=== PATIENT | female | born 1935 | race Caucasian/White ===

== ENCOUNTER → 2023-09-27 09:37 | Outpatient (REF) | payer MEDICARE, OTHER, SELFPAY ==
[2023-09-27 10:49] LABS: NT-proBNP 2370 pg/ml
[2023-09-27 10:56] LABS: Albumin 4.6 g/dl (3.5-5.0); Blood Urea Nitrogen 33 mg/dl (7-17); Calcium 9.6 mg/dl (8.4-10.2); Carbon Dioxide 28 mmol/L (22-30); Chloride 101 mmol/L (98-107); Glucose 108 mg/dl (70-99); Phosphorus 6.6 mg/dl (2.5-4.5); Sodium 139 mmol/L (135-145); eGFR 31.21
== END ==
LOC: OLABWIL 09:37
PROVIDERS: ATTENDING PHYSICIAN Internal Medicine Cardiovascular Disease
DX: I50.9 Heart failure, unspecified (principal); N18.32 Chronic kidney disease, stage 3b
CPT/HCPCS: 36415; 80069; 83880

== ENCOUNTER → 2023-10-23 10:58 | Outpatient (REF) | payer MEDICARE, OTHER, SELFPAY ==
[2023-10-23 11:20] LABS: Blood Urea Nitrogen 34 mg/dl (7-17); Calcium 9.8 mg/dl (8.4-10.2); Carbon Dioxide 28 mmol/L (22-30); Chloride 97 mmol/L (98-107); Glucose 112 mg/dl (70-99); Potassium 5.5 mmol/L (3.5-5.1); Sodium 137 mmol/L (135-145); eGFR 31.21
== END ==
LOC: OLABWIL 10:58
PROVIDERS: ATTENDING PHYSICIAN Internal Medicine Cardiovascular Disease
DX: N18.32 Chronic kidney disease, stage 3b (principal)
CPT/HCPCS: 36415; 80048

== ENCOUNTER → 2023-11-16 10:27 | Outpatient (REF) | payer MEDICARE, OTHER, SELFPAY | LOC: RAD 10:27 | PROVIDERS: ATTENDING PHYSICIAN Nurse Practitioner Adult Health; FAMILY PHYSICIAN Nurse Practitioner Family | DX: N95.0 Postmenopausal bleeding (principal) | CPT/HCPCS: 76830; 76856 ==

== ENCOUNTER → 2023-12-11 10:21 | Outpatient (REF) | payer MEDICARE, OTHER, SELFPAY ==
[2023-12-11 11:09] LABS: Blood Urea Nitrogen 32 mg/dl (7-17); Calcium 9.6 mg/dl (8.4-10.2); Carbon Dioxide 28 mmol/L (22-30); Chloride 101 mmol/L (98-107); Glucose 104 mg/dl (70-99); Potassium 4.4 mmol/L (3.5-5.1); Sodium 137 mmol/L (135-145); eGFR 33.73
== END ==
LOC: OLABWIL 10:21
PROVIDERS: ATTENDING PHYSICIAN Internal Medicine Cardiovascular Disease
DX: N18.32 Chronic kidney disease, stage 3b (principal); E87.5 Hyperkalemia
CPT/HCPCS: 36415; 80048

== ENCOUNTER → 2024-02-05 15:23 | Outpatient (REF) | payer MEDICARE, OTHER, SELFPAY ==
[2024-02-05 16:15] LABS: ALT (SGPT) 10 U/L (0-35); AST (SGOT) 27 U/L (14-36); Albumin 4.6 g/dl (3.5-5.0); Alkaline Phosphatase 61 U/L (38-126); Blood Urea Nitrogen 32 mg/dl (7-17); Calcium 9.5 mg/dl (8.4-10.2); Carbon Dioxide 27 mmol/L (22-30); Chloride 99 mmol/L (98-107); Glucose 92 mg/dl (70-99); HDL Cholesterol 96 mg/dl; LDL Cholesterol, Calculated 55 mg/dl; Potassium 4.8 mmol/L (3.5-5.1); Sodium 137 mmol/L (135-145); Total Bilirubin 0.6 mg/dl (0.2-1.3); Total Cholesterol 172 mg/dl (50-199); Total Protein 7.7 g/dl (6.3-8.2); Triglyceride 107 mg/dl (10-149); Very Low Density Lipoprotein 21 mg/dl (0-30); eGFR 40.05
[2024-02-05 16:16] LABS: % Basophils 1.2 % (0-2); % Eosinophils 2.8 % (0-6); % Immature Granulocytes 0.3 % (0-0.5); % Lymphocytes 34.4 % (20.5-51.1); % Neutrophils 51.3 % (42.2-75.2); Absolute Basophils 0.1 10^3/uL (0-0.2); Absolute Eosinophils 0.2 10^3/uL (0-0.7); Absolute Monocytes 0.9 10^3/uL (0.1-0.6); Absolute Neutrophils 4.4 10^3/uL (1.4-6.5); Hematocrit 37.7 % (37.0-47.0); Hemoglobin 11.8 g/dL (12.0-16.0); Mean Corp Hgb Conc. 31.3 g/dL (33.0-37.0); Mean Corpuscular Hgb 31.4 pg (27.0-31.0); Mean Corpuscular Volume 100.3 fL (81.0-99.0); Mean Platelet Volume 11.3 fL (7.4-10.4); Nucleated Red Blood Cells % 0 %; Platelet Count 281 10^3/uL (130-400); Red Blood Cell Count 3.76 10^6/uL (4.20-5.40); Red Cell Dist. Width 13.3 % (11.5-14.5); White Blood Cell Count 8.6 10^3/uL (4.8-10.8)
[2024-02-05 17:00] LABS: TSH Reflex To Free T4 3.65 uIU/ml (0.47-4.68)
== END ==
LOC: OLABWIL 15:23
PROVIDERS: ATTENDING PHYSICIAN Nurse Practitioner Family
DX: I50.9 Heart failure, unspecified (principal); E03.9 Hypothyroidism, unspecified; E78.2 Mixed hyperlipidemia; N18.32 Chronic kidney disease, stage 3b
CPT/HCPCS: 36415; 80053; 80061; 82306; 84443; 85025

== ENCOUNTER → 2024-03-05 14:32 | Outpatient (REF) | payer MEDICARE, OTHER, SELFPAY | LOC: RAD 14:32 | PROVIDERS: ATTENDING PHYSICIAN Physician Assistant; FAMILY PHYSICIAN Nurse Practitioner Family | DX: R63.4 Abnormal weight loss (principal) | CPT/HCPCS: 74150 ==

== ENCOUNTER → 2024-04-12 10:37 | Outpatient (REF) | payer MEDICARE, OTHER, SELFPAY | LOC: RCS 10:37 | PROVIDERS: ATTENDING PHYSICIAN Internal Medicine Cardiovascular Disease; FAMILY PHYSICIAN Family Medicine | DX: I50.30 Unspecified diastolic (congestive) heart failure (principal); I44.2 Atrioventricular block, complete; Z95.0 Presence of cardiac pacemaker; I48.0 Paroxysmal atrial fibrillation; I10 Essential (primary) hypertension; E78.2 Mixed hyperlipidemia | CPT/HCPCS: 93306 ==

== ENCOUNTER → 2024-06-05 10:14 | Outpatient (REF) | payer MEDICARE, OTHER, SELFPAY ==
[2024-06-05 11:07] LABS: % Basophils 0.8 % (0-2); % Eosinophils 2.5 % (0-6); % Immature Granulocytes 0.2 % (0-0.5); % Lymphocytes 34.3 % (20.5-51.1); % Monocytes 8.6 % (1.7-9.3); % Neutrophils 53.6 % (42.2-75.2); Absolute Basophils 0.1 10^3/uL (0-0.2); Absolute Eosinophils 0.2 10^3/uL (0-0.7); Absolute Lymphocytes 3.2 10^3/uL (1.2-3.4); Absolute Monocytes 0.8 10^3/uL (0.1-0.6); Hematocrit 36.5 % (37.0-47.0); Hemoglobin 11.9 g/dL (12.0-16.0); Mean Corp Hgb Conc. 32.6 g/dL (33.0-37.0); Mean Corpuscular Hgb 32.1 pg (27.0-31.0); Mean Corpuscular Volume 98.4 fL (81.0-99.0); Mean Platelet Volume 11.9 fL (7.4-10.4); Nucleated Red Blood Cells % 0 %; Platelet Count 219 10^3/uL (130-400); Red Blood Cell Count 3.71 10^6/uL (4.20-5.40); Red Cell Dist. Width 13.8 % (11.5-14.5); White Blood Cell Count 9.3 10^3/uL (4.8-10.8)
[2024-06-05 11:25] LABS: Blood Urea Nitrogen 45 mg/dl (7-17); Calcium 9.2 mg/dl (8.4-10.2); Carbon Dioxide 30 mmol/L (22-30); Chloride 100 mmol/L (98-107); Glucose 86 mg/dl (70-99); Potassium 5.1 mmol/L (3.5-5.1); Sodium 144 mmol/L (135-145); eGFR 28.84
== END ==
LOC: OLABWIL 10:14
PROVIDERS: ATTENDING PHYSICIAN Nurse Practitioner Family
DX: N18.32 Chronic kidney disease, stage 3b (principal); R53.83 Other fatigue
CPT/HCPCS: 36415; 80048; 85025

== ENCOUNTER → 2024-06-19 11:23 | Outpatient (REF) | payer MEDICARE, OTHER, SELFPAY ==
[2024-06-19 12:19] LABS: Calcium 9.3 mg/dl (8.4-10.2); Uric Acid 5.7 mg/dl (2.5-6.2)
[2024-06-19 12:27] LABS: NT-proBNP 2010 pg/ml
[2024-06-19 12:28] LABS: Protein/creatinine Ratio 0.6; Urine Protein 26 mg/dl
[2024-06-19 12:32] LABS: Microalbumin, Random Urine 3.2 mg/dl (0.6-1.7); Microalbumin/creatinine Ratio 68.4 mg/g
[2024-06-21 01:56] LABS: ANA, IgG Reflex to HEp-2 None Detected (None Detected)
[2024-06-21 03:52] LABS: Arsenic, Blood 70.8 ug/L (<=12.0); Lead - Venous <2.0 ug/dL (<=4.9)
[2024-06-21 22:44] LABS: 24 Hour Urine Total Volume Random mL; Urine Collection Length Random hr; Urine Free Kappa Light Chains 113.65 mg/L (0.00-32.90); Urine Free Lambda Light Chains 25.09 mg/L (0.00-3.79)
[2024-06-22 00:22] LABS: Albumin 4.19 g/dL (3.75-5.01); Alpha 1 Globulin 0.35 g/dL (0.19-0.46); Alpha 2 Globulin 0.88 g/dL (0.48-1.05); SPEP IFE Reflex Not Done; Total Protein-Electrophoresis 7.5 g/dL (6.3-8.2)
== END ==
LOC: OLABWIL 11:23
PROVIDERS: ATTENDING PHYSICIAN Specialist
DX: N18.32 Chronic kidney disease, stage 3b (principal)
CPT/HCPCS: 36415; 82043; 82175; 82570; 83521; 83655; 83825; 83880; 83970; 84155; 84156; 84165; 84550; 86038; 86335

== ENCOUNTER → 2024-10-14 08:24 | Outpatient (REF) | payer MEDICARE, OTHER, SELFPAY ==
[2024-10-14 09:11] LABS: % Basophils 0.8 % (0-2); % Eosinophils 1.9 % (0-6); % Immature Granulocytes 0.2 % (0-0.5); % Lymphocytes 37.5 % (20.5-51.1); % Monocytes 7.8 % (1.7-9.3); % Neutrophils 51.8 % (42.2-75.2); Absolute Basophils 0.1 10^3/uL (0-0.2); Absolute Eosinophils 0.2 10^3/uL (0-0.7); Absolute Lymphocytes 3.8 10^3/uL (1.2-3.4); Absolute Monocytes 0.8 10^3/uL (0.1-0.6); Absolute Neutrophils 5.2 10^3/uL (1.4-6.5); Hemoglobin 11.7 g/dL (12.0-16.0); Mean Corp Hgb Conc. 31.6 g/dL (33.0-37.0); Mean Corpuscular Hgb 31.1 pg (27.0-31.0); Mean Corpuscular Volume 98.4 fL (81.0-99.0); Mean Platelet Volume 11.2 fL (7.4-10.4); Nucleated Red Blood Cells % 0 %; Platelet Count 303 10^3/uL (130-400); Red Blood Cell Count 3.76 10^6/uL (4.20-5.40); Red Cell Dist. Width 14.5 % (11.5-14.5)
[2024-10-14 09:53] LABS: ALT (SGPT) 13 U/L (0-35); AST (SGOT) 24 U/L (14-36); Albumin 4.8 g/dl (3.5-5.0); Alkaline Phosphatase 73 U/L (38-126); Blood Urea Nitrogen 32 mg/dl (7-17); Calcium 9.5 mg/dl (8.4-10.2); Carbon Dioxide 22 mmol/L (22-30); Chloride 104 mmol/L (98-107); Glucose 113 mg/dl (70-99); Potassium 4.5 mmol/L (3.5-5.1); Sodium 140 mmol/L (135-145); Total Bilirubin 0.7 mg/dl (0.2-1.3); Total Cholesterol 179 mg/dl (50-199); Total Protein 7.5 g/dl (6.3-8.2); Triglyceride 104 mg/dl (10-149); Very Low Density Lipoprotein 20 mg/dl (0-30)
[2024-10-14 10:01] LABS: HDL Cholesterol 127 mg/dl; LDL Cholesterol, Calculated 32 mg/dl
[2024-10-14 10:20] LABS: TSH Reflex To Free T4 3.85 uIU/ml (0.47-4.68)
== END ==
LOC: OLABWIL 08:24
PROVIDERS: ATTENDING PHYSICIAN Internal Medicine
DX: N18.32 Chronic kidney disease, stage 3b (principal); E03.9 Hypothyroidism, unspecified; Z95.0 Presence of cardiac pacemaker; E78.2 Mixed hyperlipidemia; I10 Essential (primary) hypertension
CPT/HCPCS: 36415; 80053; 80061; 84443; 85025

== ENCOUNTER → 2025-02-26 12:02 | Outpatient (REF) | payer MEDICARE, OTHER, SELFPAY ==
[2025-02-26 13:16] LABS: ALT (SGPT) 15 U/L (0-35); AST (SGOT) 26 U/L (14-36); Albumin 4.9 g/dl (3.5-5.0); Alkaline Phosphatase 78 U/L (38-126); Blood Urea Nitrogen 43 mg/dl (7-17); Calcium 9.5 mg/dl (8.4-10.2); Carbon Dioxide 26 mmol/L (22-30); Chloride 103 mmol/L (98-107); Glucose 99 mg/dl (70-99); HDL Cholesterol 105 mg/dl; LDL Cholesterol, Calculated 43 mg/dl; Potassium 4.7 mmol/L (3.5-5.1); Sodium 140 mmol/L (135-145); Total Protein 7.9 g/dl (6.3-8.2); Very Low Density Lipoprotein 19 mg/dl (0-30); eGFR 36.19
== END ==
LOC: OLABWIL 12:02
PROVIDERS: ATTENDING PHYSICIAN Internal Medicine
DX: N18.32 Chronic kidney disease, stage 3b (principal); E03.9 Hypothyroidism, unspecified; E78.2 Mixed hyperlipidemia
CPT/HCPCS: 36415; 80053; 80061; 84439; 84443

== ENCOUNTER → 2025-03-05 14:51 | Outpatient (REF) | payer MEDICARE, OTHER, SELFPAY ==
[2025-03-05 16:13] LABS: Urine Character Clear (Clear)
[2025-03-05 16:22] LABS: Hematocrit 37.7 % (37.0-47.0); Hemoglobin 11.8 g/dL (12.0-16.0); Mean Corp Hgb Conc. 31.3 g/dL (33.0-37.0); Mean Corpuscular Volume 98.7 fL (81.0-99.0); Nucleated Red Blood Cells % 0 %; Platelet Count 298 10^3/uL (130-400); Red Cell Dist. Width 13.5 % (11.5-14.5)
[2025-03-05 16:28] LABS: Urine Squamous Cell >30 /LPF (Few); Urine White Cell >100 /HPF (0-5)
[2025-03-05 16:42] LABS: ALT (SGPT) 17 U/L (0-35); AST (SGOT) 29 U/L (14-36); Albumin 4.9 g/dl (3.5-5.0); Alkaline Phosphatase 64 U/L (38-126); Blood Urea Nitrogen 49 mg/dl (7-17); Calcium 9.1 mg/dl (8.4-10.2); Carbon Dioxide 27 mmol/L (22-30); Chloride 104 mmol/L (98-107); Glucose 83 mg/dl (70-99); Iron 72 ug/dl (37-170); Magnesium 2.4 mg/dl (1.6-2.3); Potassium 4.5 mmol/L (3.5-5.1); Sodium 142 mmol/L (135-145); Total Protein 8.1 g/dl (6.3-8.2); eGFR 39.55
[2025-03-05 16:51] LABS: Total Iron Binding Capacity 483 ug/dl (265-497)
[2025-03-05 17:10] LABS: Ferritin 24.1 ng/ml (11.1-264.0)
[2025-03-05 17:23] LABS: Vitamin B12 673 pg/ml (239-931)
[2025-03-05 18:39] LABS: Folate > 20.0 ng/ml (2.76-20)
== END ==
LOC: REG 14:51
PROVIDERS: ATTENDING PHYSICIAN Nurse Practitioner Adult Health; FAMILY PHYSICIAN Internal Medicine
DX: R63.0 Anorexia (principal); N18.32 Chronic kidney disease, stage 3b; D63.1 Anemia in chronic kidney disease; R30.0 Dysuria; D51.8 Other vitamin B12 deficiency anemias
CPT/HCPCS: 36415; 80053; 81003; 81015; 82607; 82728; 82746; 83540; 83550; 83735; 85025; 87077; 87086; 87147

== ENCOUNTER → 2025-04-10 14:10 | Outpatient (REF) | payer MEDICARE, OTHER, SELFPAY ==
[2025-04-10 15:26] LABS: Hematocrit 37.0 % (37.0-47.0); Hemoglobin 11.5 g/dL (12.0-16.0); Mean Corp Hgb Conc. 31.1 g/dL (33.0-37.0); Mean Corpuscular Volume 96.4 fL (81.0-99.0); Nucleated Red Blood Cells % 0 %; Platelet Count 242 10^3/uL (130-400); Red Cell Dist. Width 12.7 % (11.5-14.5)
== END ==
LOC: REG 14:10
PROVIDERS: ATTENDING PHYSICIAN Nurse Practitioner Adult Health; FAMILY PHYSICIAN Internal Medicine
DX: D72.819 Decreased white blood cell count, unspecified (principal)
CPT/HCPCS: 36415; 85025

== ENCOUNTER → 2025-06-11 10:51 | Outpatient (REF) | payer MEDICARE, OTHER, SELFPAY ==
[2025-06-11 12:28] LABS: Hematocrit 37.1 % (37.0-47.0); Hemoglobin 11.4 g/dL (12.0-16.0); Mean Corp Hgb Conc. 30.7 g/dL (33.0-37.0); Mean Corpuscular Volume 94.2 fL (81.0-99.0); Nucleated Red Blood Cells % 0 %; Platelet Count 303 10^3/uL (130-400); Red Cell Dist. Width 13.3 % (11.5-14.5)
[2025-06-11 13:36] LABS: ALT (SGPT) 24 U/L (0-35); AST (SGOT) 30 U/L (14-36); Albumin 4.4 g/dl (3.5-5.0); Alkaline Phosphatase 113 U/L (38-126); Blood Urea Nitrogen 43 mg/dl (7-17); Calcium 8.9 mg/dl (8.4-10.2); Carbon Dioxide 28 mmol/L (22-30); Chloride 101 mmol/L (98-107); Glucose 116 mg/dl (70-99); HDL Cholesterol 104 mg/dl; LDL Cholesterol, Calculated 42 mg/dl; Potassium 4.1 mmol/L (3.5-5.1); Sodium 139 mmol/L (135-145); Total Protein 7.6 g/dl (6.3-8.2); Very Low Density Lipoprotein 20 mg/dl (0-30); eGFR 28.67
== END ==
LOC: OLABWIL 10:51
PROVIDERS: ATTENDING PHYSICIAN Internal Medicine
DX: E03.9 Hypothyroidism, unspecified (principal); I44.2 Atrioventricular block, complete; E78.2 Mixed hyperlipidemia; R63.4 Abnormal weight loss; E87.5 Hyperkalemia; R15.2 Fecal urgency
CPT/HCPCS: 36415; 80053; 80061; 84443; 85025

== ENCOUNTER 2025-07-08 19:45 | Inpatient (IN) | payer MEDICARE, OTHER, SELFPAY ==
[2025-07-08] VITALS (7 sets, daily range): BP systolic 131–190; BP diastolic 57–95; BMI 18.3; BMI 17.2
[2025-07-08 14:58] LABS: Hematocrit 34.4 % (37.0-47.0); Hemoglobin 10.9 g/dL (12.0-16.0); Mean Corp Hgb Conc. 31.7 g/dL (33.0-37.0); Mean Corpuscular Volume 91.0 fL (81.0-99.0); Nucleated Red Blood Cells % 0 %; Platelet Count 333 10^3/uL (130-400); Red Cell Dist. Width 13.4 % (11.5-14.5)
[2025-07-08 15:22] LABS: ALT (SGPT) 25 U/L (0-35); AST (SGOT) 33 U/L (14-36); Albumin 4.4 g/dl (3.5-5.0); Alkaline Phosphatase 90 U/L (38-126); Blood Urea Nitrogen 43 mg/dl (7-17); Calcium 9.0 mg/dl (8.4-10.2); Carbon Dioxide 28 mmol/L (22-30); Chloride 103 mmol/L (98-107); Glucose 94 mg/dl (70-99); Potassium 3.9 mmol/L (3.5-5.1); Sodium 138 mmol/L (135-145); Total Protein 7.6 g/dl (6.3-8.2); eGFR 33.31
[2025-07-08 15:39] LABS: Troponin I 0.038 ng/ml
--- NOTE | 2025-07-08 17:38 | ED.GENMED ---
History of Present Illness
General
Chief Complaint: Breathing Problem
Time Seen by Provider: 07/08/25 17:38
History of Present Illness
History of Present Illness:
FOCUSED PAST MEDICAL HISTORY
- Heart failure
REVIEW OF OLD RECORDS
- Prior BNP was 2009 and 2023
- Echo [address] Boss showed EF 55 to 60% with mild to moderate mitral stenosis and mild aortic regurgitation mild LVH
Note:
CHIEF COMPLAINT(S)
Shortness of breath and leg swelling.
HISTORY OF PRESENT ILLNESS
The patient is an 89-year-old female with a history of atrial fibrillation and a pacemaker, presenting with worsening shortness of breath and significant swelling in the legs and ankles. Per the patients family, these symptoms began approximately a
week and a half ago, around the day before Thanksgi. During a visit to her primary care provider earlier today, her oxygen saturation was noted to be 68% upon ambulation, and she experienced shortness of breath. She denies any chest pain. The
recent chest X-ray and blood work are suggestive of congestive heart failure. The patient has also experienced a significant weight loss, currently weighing only 87 pounds, indicating fluid retention rather than weight gain, which correlates with
her symptoms of congestive heart failure.
PAST MEDICAL AND SURGICAL HISTORY
- Atrial fibrillation
- Pacemaker implantation
ADDITIONAL HISTORY OBTAINED FROM SOURCES OTHER THAN THE PATIENT
Per the patients family: The patients overall condition has been fluctuating, with noticeable weakness and fatigue, especially noted today.
CHRONIC MEDICAL CONDITIONS SIGNIFICANTLY AFFECTING CARE
- Congestive heart failure (episodes noted three times in the past three years)
SOCIAL DETERMINANTS AFFECTING HEALTH
Financial issues not specifically mentioned, but family support is implied through active engagement in the patients care.
MEDICATIONS
- Apixaban (Eliquis) for atrial fibrillation
- Nitroglycerin patch currently in use
REVIEW OF SYSTEMS
- Respiratory: Shortness of breath upon exertion
- Cardiovascular: Swelling of legs and ankles
- General: Noticeable weight loss
PHYSICAL EXAM
General: Alert, no acute distress noted. Room air sat 94 to 96%, thin build with evidence of poor nutrition.
Skin: Warm, dry.
Head: Normocephalic, atraumatic.
Neck: Supple, trachea midline.
Eye Ears, nose, mouth and throat: Oral mucosa moist.
Cardiovascular: Normal peripheral perfusion, 3+ bilateral lower extremity edema
Respiratory: Non-labored respirations at rest. Some very faint rales and decreased breath sounds at the bases.
Gastrointestinal : Abdomen nondistended
Back: Normal range of motion, Normal alignment.
Musculoskeletal: Normal ROM, normal strength.
Neurological: Alert and oriented to person, place, time, and situation, No focal neurological deficit observed.
Psychiatric: Cooperative, appropriate mood & affect.
PLAN
- Admission to the hospital for management of suspected congestive heart failure.
- Initiate intravenous diuretics (Lasix) to manage fluid overload.
- Notify hospitalist and wing coverer of patient�s condition.
- Continue communication with primary care and cardiology providers regarding patient�s care plan.
DIFFERENTIAL DIAGNOSIS
The Differential Diagnosis includes, in no particular order and is not limited to:
- Congestive heart failure exacerbation
- Pulmonary hypertension
- Acute or chronic renal failure
- Chronic obstructive pulmonary disease
- Pulmonary embolism
- Pneumonia
- Atrial fibrillation with rapid ventricular response
- Cardiac ischemia
- Peripheral edema due to other causes (e.g., venous insufficiency)
- Malnutrition due to weight loss and cachexia
RADIOLOGY
- Chest x-ray shows mild cardiomegaly and mild vascular congestion with small pleural effusions
EKG
- V paced, 75, left axis deviation, no old to compare
LABS
- White count 9.4, hemoglobin 10.9, creatinine 1.5, troponin 0.038, BNP 5230
UPDATE
- Discussed case with Dr. Roberts who agrees with diuresis
- Troponin elevation of doubtful clinical significance as the patient has no chest discomfort
- Will diurese IV
- Patient is hypertensive and is already on a nitroglycerin patch
- Plan admission to the hospital
SUMMARY OF ENCOUNTER
The patient, an 89-year-old female with a past medical history of atrial fibrillation and a pacemaker, presented to the emergency department with worsening shortness of breath and leg swelling. Her symptoms began approximately a week and a half ago.
Earlier today, during a visit to her primary care provider, her oxygen saturation was recorded at 68% upon ambulation. There is a significant suspicion of congestive heart failure due to clinical findings including a recent chest X-ray and lab work.
Based on my independent interpretation of her chest x-ray and BNP results, combined with her physical examination findings, a diagnosis of heart failure is strongly supported. Consequently, I initiated treatment with intravenous diuretics for fluid
overload and decided to admit the patient to the hospital for further management.
DISPOSITION
Admit
ASSESSMENT
The patient is presenting with symptoms consistent with congestive heart failure exacerbation, supported by clinical findings and imaging.
MANAGEMENT OF THE PATIENTS CARE WAS DISCUSSED WITH
Notified her cardiology group of her admission and current condition.
PLAN
The patient will be admitted to the hospital for the management of suspected congestive heart failure, continuing treatment with IV diuretics (furosemide) to address fluid overload, and close monitoring to adjust the management plan as necessary.
INDEPENDENT REVIEW OF LABS AND INTERPRETATION OF TESTS
- My independent review of the BNP indicates findings consistent with heart failure.
- My independent interpretation of the chest x-ray suggests evidence supporting congestive heart failure.
MEDICATION RECONCILIATION
Medication administered: Intravenous diuretics (furosemide) initiated for the treatment of fluid overload associated with heart failure exacerbation.
MEDICAL DECISION MAKING
- Number and Complexity of Problems Addressed: Chronic conditions affecting care include atrial fibrillation, use of pacemaker, and suspected congestive heart failure exacerbation. Differential Diagnosis considered: congestive heart failure
exacerbation, pulmonary hypertension, acute or chronic renal failure, chronic obstructive pulmonary disease, pulmonary embolism, pneumonia, atrial fibrillation with rapid ventricular response, cardiac ischemia, peripheral edema due to other causes,
and malnutrition.
- Data:
- Category 1: Tests reviewed include chest x-ray and BNP results suggestive of heart failure.
- Category 2: Information obtained from independent historian includes family reports of the patient�s fluctuating condition.
- Category 3: Consultation and management discussions with the patients cardiology group.
-Risk: Admission due to exacerbation of heart failure and the need for intravenous diuretic therapy was considered necessary due to the risk of increased morbidity associated with unmanaged fluid overload.
DIAGNOSIS
Acute exacerbation of heart failure
Phy Exam
Physical Exam
Physical Exam:
See HPI
Scores
Heart Failure Risk
Heart Failure Risk Score: Not Applicable
Course
Orders/Labs/Results
Orders:
Orders
07/08/25 14:37
Electrocardiogram (*1) Urgent
Reason for Study: Other
Other Reason for Exam: Respiratory Distress
Cardiac Monitoring- Treatment ONCE
EKG- Treatment ONCE
IV Insert/Care/Rem.- Treatment PRN
CR Chest - 2 Views Urgent
Comment:
Reason For Exam: respiratory distress
O2 Therapy [RESP] Urgent
Titrate/Wean O2 to maintain O2 sat greater than (%): 93
Special Instructions: TO MAINTAIN CONTINUOUS O2 SATS >/= 93%
Pulse Ox/cont/shift [RESP] Urgent
Quantity: 1
Special Instructions: continuous pulse ox
07/08/25 14:49
Complete Blood Count/With Diff Urgent
Comprehensive Metabolic Panel Urgent
NT-proBNP Urgent
Troponin I Urgent
07/08/25 17:53
Furosemide [Lasix] 40 mg IV NOW STA
Abnormal Lab Results
07/08/25
14:49
RBC 3.78 L 10^6/uL
(4.20-5.40)
Hgb 10.9 L g/dL
(12.0-16.0)
Hct 34.4 L %
(37.0-47.0)
MCHC 31.7 L g/dL
(33.0-37.0)
MPV 10.7 H fL
(7.4-10.4)
Absolute Monos (auto) 0.7 H 10^3/uL
(0.1-0.6)
BUN 43 H mg/dl
(7-17)
Creatinine 1.5 H mg/dL
(0.6-1.0)
Troponin I 0.038 H* ng/ml
07/08/25 14:49
07/08/25 14:49
Vital Signs
Initial and Last Documented VS:
Initial Vital Signs
Temp Pulse Resp BP Pulse Ox
36.7 C 94 20 190/95 97
07/08/25 14:29 07/08/25 14:29 07/08/25 14:29 07/08/25 14:29 07/08/25 14:29
Last Documented Vital Signs
Temp Pulse Resp BP Pulse Ox
36.7 C 76 21 181/76 94
07/08/25 14:29 07/08/25 17:41 07/08/25 17:41 07/08/25 17:41 07/08/25 17:41
*Pulse Oximetry
SaO2: 97
Oxygen Mode of Delivery: Room air
Patient hypoxic: no
*Critical Care Note
Total Time (30-74mins, 75-104mins- exclusive of procedures): Not Applicable
ED Attending Note
-
Portions of this chart may have been created with voice recognition software.� Occasional wrong word or��sound alike� substitutions may have occurred due to the inherent limitations of voice recognition software.
Discharge Plan
Departure
Patient Disposition: Admit
Date of Disposition: 07/08/25
Time of Disposition: 17:54
Presentation/result/management discussed w/ accepting MD/DO: Hospitalist
Discharge Problem:
Acute exacerbation of chronic heart failure
Prescriptions:
No Action
Eliquis 2.5 mg Tablet
2.5 mg PO BID
venlafaxine [Effexor XR] 75 mg Capsule,Extended Release 24hr
225 mg PO DAILY
atorvastatin [Lipitor] 20 mg Tablet
20 mg PO HS
loperamide 2 mg Tablet
2 mg PO BID
carvedilol [Coreg] 3.125 mg Tablet
3.125 mg PO BID
famotidine [Pepcid] 20 mg Tablet
20 mg PO HS
nitroglycerin 0.4 mg/hr Patch 24 Hour
1 patch TRANSDERMAL DAILY
furosemide [Lasix] 20 mg Tablet
20 mg PO DAILY
bupropion HCl [Wellbutrin XL] 300 mg Tablet Extended Release 24 Hr
300 mg PO DAILY
mirtazapine 7.5 mg Tablet
7.5 mg PO HS
cholecalciferol (vitamin D3) [Vitamin D3] 25 mcg (1,000 unit) Tablet
25 mcg PO DAILY
Interventions
Interventions:
*Risk Screen - Suicide Last Done: 07/08/25 14:29
Discharge Date and Time
Print Language: HAITIAN
--- NOTE | 2025-07-08 18:23 | HPS.HSE ---
Addendum entered and electronically signed by Enoch Estevez MD 07/08/25 19:31:
This is an addendum to H&P written by Charmaine Fuentes on 07/08/2025. �Patient seen and examined independently with VENEER PATCHER.
89-year-old female past medical history of paroxysmal atrial fibrillation with pacemaker, CAD, HFpEF, CKD, chronic anemia, hypertension, hypercholesteremia, anxiety depression, hypothyroidism, presenting with lower extremity wound, and shortness of
breath for 1 week.
Vital signs show blood pressure 190/95.
Cardiac BNP 5000. �Troponin of 0.038. �EKG shows ventricular paced rhythm. �Chest x-ray shows mild cardiomegaly with likely mild interstitial edema and small bilateral pleural effusion with adjacent atelectasis.
Patient with acute HFpEF exacerbation. �Gideon, cardiology.
Original Note:
Family Physician
-
Family Physician:
Chief Complaint
-
shortness of breath and bilateral lower extremity swelling
History of Present Illness
Patient is a 89-year-old female with past medical history significant for HFpEF, paroxysmal atrial fibrillation, hyperlipidemia, chronic kidney disease III, anxiety/depression, GERD, hypothyroidism and CAD who presented to [facility] ED for evaluation of
shortness of breath and bilateral lower extremity swelling. Patient and family at bedside to assist in HPI. Patient states she has noticed increased swelling in lower legs the day before Thanksgiving. She reports it has progressively got worse since
then. Today she went to primary care office to be seen and her SpO2 dropped with ambulation to 64%. Does not weight herself daily so unknown if weight gain or loss. Patient denies any fevers, chills, cough, chest pain, nausea, vomiting,
constipation, diarrhea or urinary symptoms.
Medical History
Past Medical History
Past Medical History: Reports Other
Additional Past Medical History:
HFpEF
paroxysmal atrial fibrillation
hyperlipidemia
chronic kidney disease III
anxiety/depression
GERD
hypothyroidism
CAD
Past Surgical History: Reports Other
Additional Past Surgical History:
Cataract - 2019
Pacemaker- 2019
Social History
Tobacco: Non-smoker
Alcohol: None
Personal:
Living: With Family
Family History
Family History: Not pertinent
Allergies / Home Medications
Allergies reflects when Allergies were last updated in [facility].
Home Medications with original date entered in [facility]
Allergy/Medication List:
Allergies
Allergy/AdvReac Type Severity Reaction Status Date / Time
aspirin Allergy Nausea / Verified 07/08/25 14:28
Vomiting
Penicillins Allergy Unknown Verified 07/08/25 14:28
Home Medications
apixaban 2.5 mg tablet (Eliquis) 2.5 mg PO BID Heart Disease/Condition 07/08/25
atorvastatin 20 mg tablet (Lipitor) 20 mg PO HS High Cholesterol 07/08/25
bupropion HCl 300 mg 24 hr tablet, extended release (Wellbutrin XL) 300 mg PO DAILY Mental Health/Anxiety 07/08/25
carvedilol 3.125 mg tablet (Coreg) 3.125 mg PO BID Blood Pressure 07/08/25
cholecalciferol (vitamin D3) 25 mcg (1,000 unit) tablet (Vitamin D3) 25 mcg PO DAILY Supplement 07/08/25
famotidine 20 mg tablet (Pepcid) 20 mg PO HS Gastrointestinal Issue 07/08/25
furosemide 20 mg tablet (Lasix) 20 mg PO DAILY Fluid Retention/Swelling 07/08/25
loperamide 2 mg tablet 2 mg PO BID Gastrointestinal Issue 07/08/25
mirtazapine 7.5 mg tablet 7.5 mg PO HS Sleep 07/08/25
nitroglycerin 0.4 mg/hr transdermal 24 hour patch 1 patch transdermal DAILY 07/08/25
venlafaxine 75 mg capsule,extended release 24 hr (Effexor XR) 225 mg PO DAILY Mental Health/Anxiety 07/08/25
Review of Systems
-
History Source: Patient
Constitutional: Denies Fever or Chills
EENT: Denies Sore Throat
Respiratory: Reports Trouble Breathing (increased dyspnea and orthopnea); Denies Cough or Hemoptysis
Cardiac: Denies Chest Pain, Diaphoresis, Palpitations or Syncope
Abdomen/GI: Denies Abdominal Pain, Nausea, Vomiting or Diarrhea
: Denies Dysuria, Frequency or Urgency
Musculoskeletal: Reports Edema (bilateral lower extremity); Denies Joint Pain
Skin: Denies Rash
Neurological: Denies Dizzy, Headache, Weakness or Numbness
Physical Exam
Vital Signs
Vital Signs
Temp Pulse Resp BP Pulse Ox
98.1 F 76 21 181/76 94
07/08/25 14:29 07/08/25 17:41 07/08/25 17:41 07/08/25 17:41 07/08/25 17:41
Physical Exam
General: Well Developed, Well Nourished, No Apparent Distress, Comfortable, Conversant and Cachectic
HEENT: NormoCephalic, Moist mucous membranes, PERRLA, Nose Appears Normal, Ears Appear Normal and Hearing Impaired
Respiratory: Rhonchi, Non Labored Respirations and Decreased Breath Sounds; No Wheezes or Rales
Cardiac: Regular Rhythm, Murmur and Peripheral Edema (bilateral lower extremity ); No Tachycardia, Rub or Gallop
GI: Soft, Non Tender, Non Distended and Normal Bowel Sounds
Musculoskeletal: No Clubbing and No Cyanosis
Skin: Warm and IV/Catheter Site
Neuro: Awake and AO x 3
Psych: Calm
Laboratory Results
-
07/08/25 14:49
07/08/25 14:49
Laboratory Results
Total Bilirubin 0.3 mg/dl (0.2-1.3) 07/08/25 14:49
AST 33 U/L (14-36) 07/08/25 14:49
ALT 25 U/L (0-35) 07/08/25 14:49
Alkaline Phosphatase 90 U/L (38-126) 07/08/25 14:49
Troponin I 0.038 ng/ml H* 07/08/25 14:49
Data Reviewed
-
Diagnostic Radiology: Report Reviewed by me (CXR: Mild cardiomegaly with likely mild interstitial edema and small bilateral pleural effusions with adjacent atelectasis.)
Medical Tests (Nuc Med, Echo, EKG etc): Report Reviewed by me (EKG: Atrial-sensed ventricular-paced rhythm)
Lab Data: Labs Reviewed by me (hgb 10.9, hct 34.4, BUN 43, creat 1.5, eGFR 33.31, trop 0.038, pBNP 5230)
Impression/Plan
-
IMPRESSION/PLAN:
#increased bilateral lower extremity edema and dyspnea likely 2/2 acute on chronic HFpEF
#HFpEF
trop 0.038, pBNP 5230
EKG: Atrial-sensed ventricular-paced rhythm
CXR: Mild cardiomegaly with likely mild interstitial edema and small bilateral pleural effusions with adjacent atelectasis.
- Admit to telemetry
- Consult Cardiology
- IV Lasix 20mg BID
- daily weights
- I & Os
- ECHO
#paroxysmal atrial fibrillation
s/p pacemaker
- continue Eliquis
#hypertension
- continue carvedilol
#hyperlipidemia
- continue atorvastatin
#anxiety/depression
- continue bupropion, mirtazapine and venlafaxine
#GERD
- continue famotidine
#CAD
- continue nitroglycerin patch
#chronic kidney disease III
BUN 43, creat 1.5, eGFR 33.31
appears stable
- monitor BMP
#chronic anemia
hgb 10.9, hct 34.4
appears stable
- monitor h/h
Code status: full code
DVT prophylaxis: Eliquis
[2025-07-08] MEDS: LASIX 40 MG IV (18:32)
[2025-07-08] MEDS: ELIQUIS 2.5 MG PO (22:09)
[2025-07-08] MEDS: REMERON 7.5 MG PO (22:09)
[2025-07-08] MEDS: LIPITOR 20 MG PO (22:09)
[2025-07-08] MEDS: COREG 3.125 MG PO (22:09)
[2025-07-09] VITALS (8 sets, daily range): BP systolic 111–186; BP diastolic 41–85; BMI 16.9
--- NOTE | 2025-07-09 07:23 | W.PN.HOSP.TC ---
Today's Communication/Plan
-
Continue IV diuresis
Continue monitoring on telemetry
See plan
Assessment / Plan
Assessment / Plan
Physical Exam
General: Well Developed, Well Nourished, No Apparent Distress, Comfortable, Conversant and Cachectic
HEENT: NormoCephalic, Moist mucous membranes, PERRLA, Nose Appears Normal, Ears Appear Normal and Hearing Impaired
Respiratory: Rhonchi, Non Labored Respirations and Decreased Breath Sounds; No Wheezes or Rales
Cardiac: Regular Rhythm, Murmur and Peripheral Edema (bilateral lower extremity ); No Tachycardia, Rub or Gallop
GI: Soft, Non Tender, Non Distended and Normal Bowel Sounds
Musculoskeletal: No Clubbing and No Cyanosis
Skin: Warm and IV/Catheter Site
Neuro: Awake and AO x 3
Psych: Calm
Assessment/Plan
[place]
89-year-old female past medical history of paroxysmal atrial fibrillation with pacemaker, CAD, HFpEF, CKD, chronic anemia, hypertension, hypercholesteremia, anxiety depression, hypothyroidism, presenting with bilateral lower extremity swelling, and
shortness of breath for 1 week. Vital signs show blood pressure 190/95. Cardiac BNP 5000. Troponin of 0.038. EKG shows ventricular paced rhythm. Chest x-ray shows mild cardiomegaly with likely mild interstitial edema and small bilateral pleural
effusion with adjacent atelectasis.
#Acute Hypoxic Respiratory Failure -- on 07/08/25, she went to primary care office to be seen and her SpO2 dropped with ambulation to 64%
#increased bilateral lower extremity edema and dyspnea likely 2/2 acute on chronic HFpEF
#HFpEF
#Pulmonary Edema, Atelectasis and Pleural Effusions on Chest X-Ray
- Continue to monitor on telemetry
- Cardiology consulted
- IV Lasix 20mg BID
- daily weights
- I & Os
- ECHO
#paroxysmal atrial fibrillation
s/p pacemaker
- continue Eliquis
#hypertension
- continue carvedilol
#hyperlipidemia
- continue atorvastatin
#anxiety/depression
- continue bupropion, mirtazapine and venlafaxine
#GERD
- continue famotidine
#CAD
- continue nitroglycerin patch
#chronic kidney disease III
BUN 43, creat 1.5, eGFR 33.31
appears stable/improving
- monitor BMP
#chronic anemia
hgb 10.9, hct 34.4
appears stable
- monitor h/h
Code status: full code
DVT prophylaxis: Eliquis
Anticipated Discharge: 24 - 48 hours
Subjective/Interval History
-
Date of Service: July 09, 2025
Patient was seen and examined. She reported feeling better compared to when she came in.
Objective Data
-
Labs:
Laboratory Results
07/09/25
07:21
WBC Pending
Hgb Pending
Hct Pending
Plt Count Pending
Sodium Pending
Potassium Pending
Chloride Pending
Carbon Dioxide Pending
BUN Pending
Creatinine Pending
Glucose Pending
Calcium Pending
Vital Signs:
Vital Signs
Temp Pulse Resp BP Pulse Ox
98.3 F 79 18 167/80 95
07/09/25 03:41 07/09/25 03:41 07/09/25 03:41 07/09/25 03:41 07/09/25 03:41
I&O
07/08/25 07/09/25 07/10/25
06:59 06:59 06:59
Output Total 650 / 650
Balance -650 / -650
[2025-07-09 08:15] LABS: Hematocrit 34.7 % (37.0-47.0); Hemoglobin 11.3 g/dL (12.0-16.0); Mean Corp Hgb Conc. 32.6 g/dL (33.0-37.0); Mean Corpuscular Volume 88.7 fL (81.0-99.0); Platelet Count 332 10^3/uL (130-400); Red Cell Dist. Width 13.3 % (11.5-14.5)
[2025-07-09 08:29] LABS: Blood Urea Nitrogen 33 mg/dl (7-17); Calcium 9.2 mg/dl (8.4-10.2); Carbon Dioxide 31 mmol/L (22-30); Chloride 102 mmol/L (98-107); Estimated Creatinine Clearance 20 ml/min; Glucose 107 mg/dl (70-99); HDL Cholesterol 101 mg/dl; LDL Cholesterol, Calculated 33 mg/dl; Potassium 3.5 mmol/L (3.5-5.1); Sodium 139 mmol/L (135-145); Very Low Density Lipoprotein 21 mg/dl (0-30); eGFR 43.54
[2025-07-09] MEDS: COREG 3.125 MG PO ×2 (09:14→20:16)
[2025-07-09] MEDS: IMODIUM 2 MG PO ×3 (09:14→20:16)
[2025-07-09] MEDS: EFFEXOR XR 225 MG PO (09:14)
[2025-07-09] MEDS: WELLBUTRIN XL (24 hour extended release) 300 MG PO (09:14)
[2025-07-09] MEDS: PEPCID 20 MG PO (09:14)
[2025-07-09] MEDS: LASIX 20 MG PO (09:15)
[2025-07-09] MEDS: NITRO-DUR 0.4 MG TRANSDERM (09:15)
[2025-07-09] MEDS: ELIQUIS 2.5 MG PO ×2 (09:15→20:16)
[2025-07-09] MEDS: VITAMIN D3 (cholecalciferol) 25 MCG PO (09:15)
--- NOTE | 2025-07-09 10:19 | CON.CAR ---
Addendum entered and electronically signed by Allan Lacey MD 07/09/25 16:36:
89-year-old woman admitted with HFpEF.
PMH: HFpEF, severe mitral regurgitation, previously moderate, paroxysmal atrial fibrillation, CKD 3A, Medtronic dual-chamber pacemaker, hypertension, hyperlipidemia
Current meds: apixaban 2.5 BID, atorvastatin 20 QHS, Wellbutrin, carvedilol 3.125 mg BID, Pepcid 20 mg every 48 hours, Imodium, mirtazapine, nitroglycerin patch, Effexor, furosemide 20 mg IV BID
Rest of history per Zaina Hatfield. Reviewed in detail and agree unless otherwise specified
Overall, she feels better
120/52, pulse 73, respiratory rate 18, afebrile, petite, frail, very pleasant, lungs are clear neck veins not markedly elevated, left much regurgitation murmur probable aortic stenosis murmur, abdomen benign, 1+ to 2+ nonpitting edema
Echo 07/30: small LV, EF 55-60%, speckled myocardium, dense MAC, severe MR, mild mitral stenosis, mild to moderate aortic stenosis, aortic valve area 1.4 cm2, peak gradient only 18, mild to moderate AI, pulmonary artery systolic pressure is 38
mmHg, right pleural effusion,, patient wore
Potassium is 3.5, BUN/creatinine are 33 and 1.2, Troponin was 0.038, proBNP 5230, hemoglobin 11.3
ECG sinus rhythm, ventricular pacing
Impression:
Acute on chronic HFpEF
Severe MR
Mild to moderate mitral digitation
Dual-chamber pacemaker
Paroxysmal atrial fibrillation
Other diagnoses as per Zaina Hatfield, reviewed in detail and agree unless otherwise specified
Plan:
Overall she looks improved with regards to acute on chronic HFpEF. She is very petite and frail.
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 She also has an element of aortic stenosis but her aortic valve gradient is not markedly elevated.
Spironolactone was stopped, possibly for DEBI
She has rare UTIs, none recently. We could consider Jardiance or Farxiga.
It is conceivable that if mitral regurgitation is a major school bus driver/custodian that successful percutaneous treatment of her mitral valve might be helpful. However she indicated she is not enthusiastic about procedures and furthermore, with the mitral valve
gradient and dense MAC she is probably a poor candidate for clip. Strategy will remain conservative.
Continue IV furosemide for now, possibly oral furosemide in 24 hours.
Rest per Zaina Hatfield below. Reviewed in detail and agree unless otherwise specified
Original Note:
Consultation
Consultation Request
Date/Time Consultation Requested: 07/08/2025 at 2135
Date/Time Consultation Performed: 07/09/2025 at 1044
Medical History
-
History of Present Illness:
Patient came to the ER yesterday with increased LE edema and CARMEN and cardiology is now consulted for acute HF. Patient and her live in an assisted living apartment at [facility]. Patient has a history of chronic HFpEF and
usually takes Lasix 40 mg PO daily and reports compliance with this. Patient thinks that the SOB started in the last few days and LE edema was a few days before that. Patient reports good urine output with her usual dose of Lasix. Patient denies
any increased salt intake. Patient has a history of preserved EF and at least moderate MR by an echo in 2023 that now appears to be more severe in the setting of acute HF. Patient denies any chest pain.
PMH:
Chronic HFpEF
CKD 3a
Paroxysmal atrial fibrillation
Chronic Eliquis OAC
s/p Medtronic DC PPM
HTN
Hyperlipidemia
Severe MR by echo 07/09/2025
Past Medical History
Past Medical History: Other (In HPI)
Past Surgical History: Cardiac (Medtronic DC PPM 2019)
Social History
Tobacco: Former Smoker
Alcohol: None
Drug: None
Personal:
Living: With Family
Family History
Family History: Hypertension and Other (Father had CVA and leukemia)
Allergies / Home Medications
Allergy/AdvReac Type Severity Reaction Status Date / Time
aspirin Allergy Nausea / Verified 07/08/25 14:28
Vomiting
Penicillins Allergy Unknown Verified 07/08/25 14:28
�Medication �Instructions �Recorded �Confirmed �Type
apixaban 2.5 mg tablet (Eliquis) 2.5 mg PO BID Heart 07/08/25 07/08/25 History
Disease/Condition
atorvastatin 20 mg tablet (Lipitor) 20 mg PO HS High Cholesterol 07/08/25 07/08/25 History
bupropion HCl 300 mg 24 hr tablet, 300 mg PO DAILY Mental 07/08/25 07/08/25 History
extended release (Wellbutrin XL) Health/Anxiety
carvedilol 3.125 mg tablet (Coreg) 3.125 mg PO BID Blood Pressure 07/08/25 07/08/25 History
cholecalciferol (vitamin D3) 25 25 mcg PO DAILY Supplement 07/08/25 07/08/25 History
mcg (1,000 unit) tablet (Vitamin
D3)
famotidine 20 mg tablet (Pepcid) 20 mg PO HS Gastrointestinal Issue 07/08/25 07/08/25 History
furosemide 20 mg tablet (Lasix) 20 mg PO DAILY Fluid 07/08/25 07/08/25 History
Retention/Swelling
loperamide 2 mg tablet 2 mg PO BID Gastrointestinal Issue 07/08/25 07/08/25 History
mirtazapine 7.5 mg tablet 7.5 mg PO HS Sleep 07/08/25 07/08/25 History
nitroglycerin 0.4 mg/hr 1 patch transdermal DAILY 07/08/25 07/08/25 History
transdermal 24 hour patch
venlafaxine 75 mg capsule,extended 225 mg PO DAILY Mental 07/08/25 07/08/25 History
release 24 hr (Effexor XR) Health/Anxiety
Review of Systems
-
History Source: Patient
All other systems: Negative unless noted
Physical Exam
Vital Signs
Temp Pulse Resp BP Pulse Ox
98.4 F 85 18 173/85 92
07/09/25 07:55 07/09/25 09:14 07/09/25 07:55 07/09/25 09:14 07/09/25 07:55
GEN: NAD, AAO x 3
HEENT: EOMI, MMM, wearing glasses
LUNGS: RA. CTA B/L, no wheeze
CV: V paced on telemetry. Reg, S1/S2, 2/6 systolic murmur
ABD: ND
EXT: Trace to +1 pitting B/L LE edema
NEURO: Gross non-focal
SKIN: No rash
Lab Results
07/09/25 07:21
07/09/25 07:21
Troponin I 0.038 ng/ml H* 07/08/25 14:49
Sja-T-Nmoohnuvikp Pept 5230 pg/ml 07/08/25 14:49
Impression / Plan
-
PCP: Dr. Laurie Guardado
Cardiology: Dr. Stein
Impression:
Admitted with CARMEN and increased LE edema 07/08/2025
Acute on chronic HFpEF
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
Elevated troponin
Paroxysmal atrial fibrillation
Chronic Eliquis OAC
s/p Medtronic DC PPM
HTN
Hyperlipidemia
Severe MR by echo 07/09/2025
Echo 04/12/2024: EF 55 to 60%, mild to moderate MS, at least moderate MR that may be underestimated due to MAC, mild to moderate peak/mean 21/12 mmHg
Echo 07/09/2025: EF 55 to 60%, severe MR, mild MS, mild to moderate with peak/mean 18/10 mmHg, mild to moderate aortic regurgitation, normal right heart, mild to moderate TR with PAP 30 mmHg
Plan:
-Patient came to the ER yesterday with increased LE edema and CARMEN and cardiology is now consulted for acute HF. Patient and her live in an assisted living apartment at [facility]. Patient has a history of chronic HFpEF and
usually takes Lasix 40 mg PO daily and reports compliance with this. Patient thinks that the SOB started in the last few days and LE edema was a few days before that. Patient reports good urine output with her usual dose of Lasix. Patient denies
any increased salt intake. Patient has a history of preserved EF and at least moderate MR by an echo in 2023 that now appears to be more severe in the setting of acute HF. Patient denies any chest pain.
-ECG reviewed by me is V-paced with what looks like underlying SR
-Patient has had some improvement since admission with Lasix 20 mg IV BID diuresis. Weight is down at least 1 lb overnight. Patient thinks her dry weight is 86-87 lbs and her weight on 07/09/2025 is 86 lbs.
-Patient was taking Lasix 20 mg PO daily prior to admission
-EF preserved at 55 to 60% by echo 07/09/2025. There is evidence of severe MR and mild to moderate
-Outpatient dose of Coreg 3.125 mg BID has been continued
-Patient is not chronically on ALYSSA/ARB/ARNI/aldosterone antagonist due to hypotension. Spironolactone was stopped at her last office visit 04/10/2025
-Patient had DEBI on admission, but Cre has improved with initial attempts at diuresis. Patient has known CKD 3a
-Patient with known paroxysmal A-fib, but appears to be NSR on ECG. Outpatient dose of Coreg as noted above.
-Outpatient dose of Eliquis 2.5 mg BID (age 89, Cre 39 kg) has been continued
-Initial troponin was 0.038. Recheck troponin on 07/10/2025 AM. EF preserved without WMA on echo. Patient denies chest pain. This is likely nonischemic myocardial injury troponin elevation
-I called and updated the patient's daughter, Karolina, for 16 minutes and 23 seconds by phone on 07/09/2025. The patient's daughter would like a phone call again on 07/10/2025. We reviewed hospitalization thus far and the most up-to-date echo report.
We discussed that was only mild to moderate, but MR appeared severe. We discussed rechecking an echo as an outpatient once euvolemic and that if MR was still severe we could do a more in-depth assessment of the MR to see if patient was MitraClip
or appropriate. The patient is a full code and family would be interested in aggressive care.
[2025-07-09] MEDS: LASIX 20 MG IV (17:15)
[2025-07-09] MEDS: REMERON 7.5 MG PO (20:16)
[2025-07-09] MEDS: LIPITOR 20 MG PO (20:16)
[2025-07-09] MEDS: REMOVE NITROGLYCERIN PATCH 1 PATCH REMOVE (22:55)
[2025-07-10 03:00] VITALS: BP 182/85
[2025-07-10 06:00] VITALS: BMI 16.5
[2025-07-10 07:39] VITALS: BP 174/80
--- NOTE | 2025-07-10 07:59 | CM ---
Addendum entered by Millie Henry 07/10/25 15:48:
Family would like a PT/OT eval to see if pt qualifies for SNF
Addendum entered by Millie Henry 07/10/25 14:54:
Met with pt and daughter and chairside. Discuss role of VNs. Family is interested in VN. Medicare 5-star report given to dtr who selected [facility], [facility] and [facility] as referrals. Referrals placed
Original Note:
Late entry 07-09-25 4:45 PM
IA completed. IMM given to pt, unwilling to sign at this time. Independent with ADLs and IADLs. Pt lives with her spouse at [facility] independent living in a apartment with no steps at the entrance of the building. No hx of home O2, HC, or SNF. No
insecurities identified. Confirme PCP, Rx, Insurance..
DME: rollator, grab bars in BR and a shower chair.
Pt receiving IV lasix at this time.
PCP: Laurie Anne
Rx: [facility]/ [facility] [place] [facility]
Plan: DC Home no needs
[2025-07-10] MEDS: NITRO-DUR 0.4 MG TRANSDERM (08:04)
[2025-07-10] MEDS: WELLBUTRIN XL (24 hour extended release) 300 MG PO (08:05)
[2025-07-10] MEDS: VITAMIN D3 (cholecalciferol) 25 MCG PO (08:06)
[2025-07-10] MEDS: EFFEXOR XR 225 MG PO (08:06)
[2025-07-10] MEDS: COREG 3.125 MG PO ×2 (08:07→22:27)
[2025-07-10] MEDS: LASIX 20 MG IV ×2 (08:08→16:00)
[2025-07-10] MEDS: ELIQUIS 2.5 MG PO ×2 (08:10→22:27)
--- NOTE | 2025-07-10 08:37 | W.PN.HOSP.TC ---
Today's Communication/Plan
-
PT/OT, SNF placement eval which daughter is interested in
Assessment / Plan
Assessment / Plan
Physical Exam
General: Well Developed, Well Nourished, No Apparent Distress, Comfortable, Conversant and Cachectic
HEENT: NormoCephalic, Moist mucous membranes, PERRLA, Nose Appears Normal, Ears Appear Normal and Hearing Impaired
Respiratory: Rhonchi, Non Labored Respirations and Decreased Breath Sounds; No Wheezes or Rales
Cardiac: Regular Rhythm, Murmur and Peripheral Edema (bilateral lower extremity ); No Tachycardia, Rub or Gallop
GI: Soft, Non Tender, Non Distended and Normal Bowel Sounds
Musculoskeletal: No Clubbing and No Cyanosis
Skin: Warm and IV/Catheter Site
Neuro: Awake and AO x 3
Psych: Calm
Assessment/Plan
89-year-old female past medical history of paroxysmal atrial fibrillation with pacemaker, CAD, HFpEF, CKD, chronic anemia, hypertension, hypercholesteremia, anxiety depression, hypothyroidism, presenting with bilateral lower extremity swelling, and
shortness of breath for 1 week. Vital signs show blood pressure 190/95. Cardiac BNP 5000. Troponin of 0.038. EKG shows ventricular paced rhythm. Chest x-ray shows mild cardiomegaly with likely mild interstitial edema and small bilateral pleural
effusion with adjacent atelectasis.
#Acute Hypoxic Respiratory Failure -- on 07/08/25, she went to primary care office to be seen and her SpO2 dropped with ambulation to 64%
#increased bilateral lower extremity edema and dyspnea likely 2/2 acute on chronic HFpEF
#HFpEF
#Pulmonary Edema, Atelectasis and Pleural Effusions on Chest X-Ray
- Continue to monitor on telemetry
- Cardiology consulted
- IV Lasix 20mg BID --> transition to oral Lasix tomorrow
- daily weights
- I & Os
- ECHO noted
#paroxysmal atrial fibrillation
s/p pacemaker
- continue Eliquis
#hypertension
- continue carvedilol
#hyperlipidemia
- continue atorvastatin
#anxiety/depression
- continue bupropion, mirtazapine and venlafaxine
#GERD
- continue famotidine
#CAD
- continue nitroglycerin patch
#chronic kidney disease III
BUN 43, creat 1.5, eGFR 33.31
appears stable
- monitor BMP
#chronic anemia
hgb 10.9, hct 34.4
appears stable
- monitor h/h
Code status: full code
DVT prophylaxis: Eliquis
On 07/10/25, I spoke with patient's daughter inside patient's room, and I answered all of her questions and concerns to satisfaction.
Anticipated Discharge: 24 - 48 hours
Subjective/Interval History
-
Date of Service: July 10, 2025
Patient was seen and examined. She reported doing well today, no new symptoms.
Objective Data
-
Labs:
Laboratory Results
07/10/25
06:00
Sodium Pending
Potassium Pending
Chloride Pending
Carbon Dioxide Pending
BUN Pending
Creatinine Pending
Glucose Pending
Calcium Pending
Vital Signs:
Vital Signs
Temp Pulse Resp BP Pulse Ox
98.0 F 78 17 175/81 94
07/10/25 03:00 07/10/25 08:08 07/10/25 07:39 07/10/25 08:08 07/10/25 07:39
I&O
07/09/25 07/10/25 07/11/25
06:59 06:59 06:59
Intake Total 540 / 540
Output Total 650 / 650 1250 / 1250
Balance -650 / -650 -710 / -710
[2025-07-10 09:57] LABS: Blood Urea Nitrogen 31 mg/dl (7-17); Calcium 9.3 mg/dl (8.4-10.2); Carbon Dioxide 36 mmol/L (22-30); Chloride 96 mmol/L (98-107); Estimated Creatinine Clearance 18 ml/min; Glucose 104 mg/dl (70-99); Magnesium 1.9 mg/dl (1.6-2.3); Potassium 3.8 mmol/L (3.5-5.1); Sodium 138 mmol/L (135-145); eGFR 39.55
[2025-07-10 11:00] VITALS: BP 122/56
--- NOTE | 2025-07-10 13:57 | W.PN.CARDCBS ---
Addendum entered and electronically signed by Allan Lacey MD 07/10/25 17:06:
89-year-old woman admitted with HFpEF.
PMH: HFpEF, severe mitral regurgitation, previously moderate, paroxysmal atrial fibrillation, CKD 3A, Medtronic dual-chamber pacemaker, hypertension, hyperlipidemia
Medications: Reviewed
107/57, pulse 78, respiratory rate 14, afebrile, weight is 38.3 kg, was 39.3 kg, frail, pleasant, cachectic, family at bedside, head neck exam with temporal wasting, lungs relatively clear, severe MR murmur, no edema
BUN and creatinine 31 and 1.3, potassium 3.8
Impression:
Acute on chronic HFpEF
Severe MR
Mild to moderate mitral regurgitation
Dual-chamber pacemaker
Paroxysmal atrial fibrillation
Other diagnoses as per Zaina Hatfield, reviewed in detail and agree unless otherwise specified
Plan:
Overall improved.
Had been on spironolactone in the past and this was stopped.
Strategy will be conservative.
Convert to oral Lasix.
As outpatient to consider Jardiance or Farxiga. No history of UTIs.
Okay to proceed with discharge planning. Unclear that she can return to independent living at [facility].
Original Note:
Today's Communication / Plan
-
Transition to oral Lasix 40 mg on 07/11/2025
Replete potassium
Outpatient cardiology follow-up has been arranged
Impression / Plan
-
PCP: Dr. Laurie Guardado
Cardiology: Dr. Stein
Impression:
Admitted with CARMEN and increased LE edema 07/08/2025
Acute on chronic HFpEF, proBNP 5230
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
Elevated troponin
Paroxysmal atrial fibrillation
Chronic Eliquis OAC
s/p Medtronic DC PPM
HTN
Hyperlipidemia
Severe MR by echo 07/09/2025
Echo 04/12/2024: EF 55 to 60%, mild to moderate MS, at least moderate MR that may be underestimated due to MAC, mild to moderate peak/mean 21/12 mmHg
Echo 07/09/2025: EF 55 to 60%, severe MR, mild MS, mild to moderate with peak/mean 18/10 mmHg, mild to moderate aortic regurgitation, normal right heart, mild to moderate TR with PAP 30 mmHg
Plan:
Admitted 07/08/2025 with CARMEN and increased LE edema and found to have acute heart failure
Acute heart failure with proBNP 5230
-Ongoing IV diuresis with Lasix 20 mg twice daily with symptomatic improvement. Weight down 6 pounds since admission. Patient thinks her dry weight is 86-87 lbs and her weight on 07/10/2025 is 84 lbs.
-Patient had DEBI on admission with peak creatinine 1.5. Improved to 1.2 with diuresis, now trending upward at 1.3. Patient has known CKD 3a
-Potassium 3.8. Will replete
-Would transition to oral Lasix 40 mg 07/11/2025. Patient was taking Lasix 20 mg PO daily prior to admission. Will need BMP 1 week after discharge
-EF preserved at 55 to 60% by echo 07/09/2025. There is evidence of severe MR and mild to moderate
-Outpatient dose of Coreg 3.125 mg BID has been continued
-Patient is not chronically on ALYSSA/ARB/ARNI/aldosterone antagonist due to hypotension. Spironolactone was stopped at her last office visit 04/10/2025 for symptomatic hypotension
-Patient with known paroxysmal A-fib, but appears to be NSR on ECG. Outpatient dose of Coreg as noted above.
-Outpatient dose of Eliquis 2.5 mg BID (age 89, Cre 39 kg) has been continued
-Abnormal troponin, 0.038. EF preserved without WMA on echo. Patient denies chest pain. This is likely nonischemic myocardial injury troponin elevation secondary to acute heart failure
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 However, she has indicated she is not enthusiastic about procedures and family now does
not think they would want to move forward with any invasive procedures. Also discussed given mitral valve gradient and dense MAC she is probably a poor candidate for clip. Strategy will remain conservative. We discussed rechecking an echo as an
outpatient once euvolemic and further decisions can be made at that time regarding if patient would even be candidate for clip
Plan discussed with patient, patient's family at bedside, nursing.
Outpatient cardiology follow-up has been arranged
[facility] 07/09/2025:
Patient came to the ER yesterday with increased LE edema and CARMEN and cardiology is now consulted for acute HF. Patient and her live in an assisted living apartment at [facility]. Patient has a history of chronic HFpEF and
usually takes Lasix 40 mg PO daily and reports compliance with this. Patient thinks that the SOB started in the last few days and LE edema was a few days before that. Patient reports good urine output with her usual dose of Lasix. Patient denies
any increased salt intake. Patient has a history of preserved EF and at least moderate MR by an echo in 2023 that now appears to be more severe in the setting of acute HF. Patient denies any chest pain.
Progress Note - Learning And Development Associate
Subjective
Date of Service: July 10, 2025
Patient seen and examined. Patient's daughter and at bedside. Overall she reports she is feeling better. Biggest complaint currently is constipation and inability to have a bowel movement
Objective
Labs:
07/09/25 07:21
07/10/25 08:55
Labs
Hgb 11.3 g/dL (12.0-16.0) L 07/09/25 07:21
Hct 34.7 % (37.0-47.0) L 07/09/25 07:21
Plt Count 332 10^3/uL (130-400) 07/09/25 07:21
Sodium 138 mmol/L (135-145) 07/10/25 08:55
Potassium 3.8 mmol/L (3.5-5.1) 07/10/25 08:55
BUN 31 mg/dl (7-17) H 07/10/25 08:55
Creatinine 1.3 mg/dL (0.6-1.0) H 07/10/25 08:55
Glucose 104 mg/dl (70-99) H 07/10/25 08:55
Troponins
07/08/25
14:49
Troponin I 0.038 H*
Vital Signs and I&O:
Vital Signs
Temp Pulse Resp BP Pulse Ox
97.8 F 69 12 122/56 93
07/10/25 11:00 07/10/25 11:00 07/10/25 11:00 07/10/25 11:00 07/10/25 11:00
Vital Signs
Temp Pulse Resp BP Pulse Ox
97.8 F 69 12 122/56 93
07/10/25 11:00 07/10/25 11:00 07/10/25 11:00 07/10/25 11:00 07/10/25 11:00
Intake & Output
07/08/25 07/09/25 07/10/25 07/11/25
06:59 06:59 06:59 06:59
Intake Total 540 / 540
Output Total 650 / 650 1250 / 1250 450 / 450
Balance -650 / -650 -710 / -710 -450 / -450
Physical Exam
Physical Exam
GEN: Elderly thin female in no distress, awake, Ox3
HEENT: supple, anicteric, mmm
LUNGS: CTA, no wheezes/rales
CV: Reg, S1/S2, 2/6 LSB/apical murmur
ABD: soft, BS+, NT/ND
EXT: No edema, clubbing or cyanosis
NEURO: Gross non-focal
SKIN: No rash, warm, dry compared
[2025-07-10] MEDS: KCL 20 MEQ PO (14:27)
[2025-07-10 15:00] VITALS: BP 107/57
--- NOTE | 2025-07-10 15:18 | PN.CDI ---
CDI
- -
CDI:
Physician Documentation Request
Admit Date: 07/08/25 19:45
Dear Doctor,
Please review the following and provide your response in the progress notes.
Clinical Indicators:
Pt admitted for Acute on chronic HFpEF.
07/09 Registered Dietitian: ' Chart reviewed due to consult for CHF diet education and low BMI... RD able to visulize temporal wasting, protrusion of clavical and apparent ribs.
RD spoke with pts and daughter, pt lost ~12 lbs over the past year. Does not eat much and will not eat unless food is put in front of her. .
CBW: 86 lbs 10.267oz BMI 16.9 underweight. Pt with a 12% weight loss in 1 year.
With intakes of < 75% estimated needs > 1 month and observed muscle and fat wasting pt meets AND/ASPEN criteria for moderate protein calorie malnutrition of chronic illness.
RD to have enriched pudding added to lunch and dinner trays. '
Based on the above information and your assessment, which of the following most accurately represents the patient's nutritional status?
Moderate Protein Malnutrition
Other (please specify)
[place] Criteria (ACP Hospitalist 2017)
2 or more criteria must be present for either
non severe or severe malnutrition
Note that the criteria differs related to the
presence of an acute or chronic illness
Chronic Illness
Energy Intake Non Severe: <75% for >1 month
Severe: <75% for >1 month
Weight Loss Non Severe: 5% over 1 month
7.5% over 3 months
10% over 6 months
20% over 1 year
Severe: >5% over 1 month
>7.5% over 3 months
>10% over 6 months
>20% over 1 year
Body Fat Non Severe: Mild Loss
Severe: Severe Loss
Muscle Mass Non Severe: Mild Loss
Severe: Severe Loss
Fluid Accumulation Non Severe: Mild Accumulation
Severe: Moderate to severe
accumulation
Reduced Plush Cutter Strength Non Severe: N/A
Severe: Measurably reduced
Use of terms such as suspected, likely, concern for, or probable (associated with a specific diagnosis that is being evaluated, monitored, or treated as if it exists) are acceptable and can be coded in the inpatient setting, when documented at the
time of discharge.
Thank you,
Navya Alvarez RN, BSN
CDI Specialist
[employer] Text
Please use your independent medical judgment in providing your response.
--- NOTE | 2025-07-10 15:28 | W.HF.CON ---
Heart Failure
- LV Function
Left ventricular function study result: LV Ejection fraction >/= 50%
Ejection Fraction Percentage: 55-60
- ARNI
Patient already on ARNI: No
Heart Failure ARNI Not Indicated: LV Ejection Fraction >/= 40%
- ACEI/ARB
Patient already on ACEI/ARB: No
Heart Failure ACEI/ARB Not Indicated: LV Ejection Fraction > 40%
- Beta Serina
Patient already on Evidence Based Beta Serina: Yes
- Mineralocorticord Receptor Antagonist
Patient already on MRA: No
Heart Failure MRA Not Indicated: LV Ejection Fraction > 40%
- SGLT-2 Inhibitor
Patient already on SGLT-2 Inhibitor: No
Heart Failure SGLT-2 Inhibitor Contraindication: Patient Refusal
- Afib Anticoagulation
Patient already on Anticoagulation for Afib: Yes
- NYHA CHF Classification
NYHA CHF Classification Level: Class III - Symptoms w/ min exertion, interferes w/ nml daily activity (severe MR, mild/mod )
- ACC/AHA Stage
ACC/AHA Stage: Stage C: Symptomatic Heart Failure
--- NOTE | 2025-07-10 15:39 | VNURNOTE ---
Chart reviewed. [facility] will accept pt and can see her for start of care on Sunday. Relayed info to CM. YONATHAN Kelly confirmed that pt family is ok with [facility] HH services. Will add GRAIN ELEVATOR WORKER to referral.
[facility] referral placed in [facility].
[2025-07-10 19:47] VITALS: BP 123/75
[2025-07-10] MEDS: LIPITOR 20 MG PO (22:27)
[2025-07-10] MEDS: REMERON 7.5 MG PO (22:28)
[2025-07-10] MEDS: REMOVE NITROGLYCERIN PATCH 1 PATCH REMOVE (22:34)
[2025-07-10] MEDS: IMODIUM PO (22:37)
[2025-07-10 23:29] VITALS: BP 151/69
[2025-07-11] VITALS (8 sets, daily range): BP systolic 98–160; BP diastolic 54–79; PULSE 69–71; O2SAT 95–96; BMI 16.6
[2025-07-11 08:19] LABS: Blood Urea Nitrogen 34 mg/dl (7-17); Calcium 9.2 mg/dl (8.4-10.2); Carbon Dioxide 36 mmol/L (22-30); Chloride 99 mmol/L (98-107); Estimated Creatinine Clearance 16 ml/min; Glucose 108 mg/dl (70-99); Potassium 4.1 mmol/L (3.5-5.1); Sodium 139 mmol/L (135-145); eGFR 33.31
--- NOTE | 2025-07-11 08:24 | W.PN.HOSP.TC ---
Today's Communication/Plan
-
SNF placement pending
Assessment / Plan
Assessment / Plan
Physical Exam
General: Well Developed, Well Nourished, No Apparent Distress, Comfortable, Conversant and Cachectic
HEENT: NormoCephalic, Moist mucous membranes, PERRLA, Nose Appears Normal, Ears Appear Normal and Hearing Impaired
Respiratory: Rhonchi, Non Labored Respirations and Decreased Breath Sounds; No Wheezes or Rales
Cardiac: Regular Rhythm, Murmur and Peripheral Edema (bilateral lower extremity ); No Tachycardia, Rub or Gallop
GI: Soft, Non Tender, Non Distended and Normal Bowel Sounds
Musculoskeletal: No Clubbing and No Cyanosis
Skin: Warm and IV/Catheter Site
Neuro: Awake and AO x 3
Psych: Calm
Assessment/Plan
89-year-old female past medical history of paroxysmal atrial fibrillation with pacemaker, CAD, HFpEF, CKD, chronic anemia, hypertension, hypercholesteremia, anxiety depression, hypothyroidism, presenting with bilateral lower extremity swelling, and
shortness of breath for 1 week. Vital signs show blood pressure 190/95. Cardiac BNP 5000. Troponin of 0.038. EKG shows ventricular paced rhythm. Chest x-ray shows mild cardiomegaly with likely mild interstitial edema and small bilateral pleural
effusion with adjacent atelectasis.
#Acute Hypoxic Respiratory Failure -- on 07/08/25, she went to primary care office to be seen and her SpO2 dropped with ambulation to 64%
#increased bilateral lower extremity edema and dyspnea likely 2/2 acute on chronic HFpEF
#HFpEF
#Pulmonary Edema, Atelectasis and Pleural Effusions on Chest X-Ray
- Continue to monitor on telemetry
- Cardiology consulted
- IV Lasix 20mg BID --> transition to oral Lasix 40 mg today
- daily weights
- I & Os
- ECHO noted
- Please check BMP in 5 to 7 days
#paroxysmal atrial fibrillation
s/p pacemaker
- continue Eliquis 2.5 mg twice daily
#hypertension
- continue carvedilol 3.125 mg twice daily
#hyperlipidemia
- continue atorvastatin 20 mg a day
#anxiety/depression
- continue bupropion, mirtazapine and venlafaxine
#GERD
- continue famotidine
#CAD
- continue nitroglycerin patch
#chronic kidney disease III
BUN 43, creat 1.5, eGFR 33.31
appears stable
- monitor BMP
#chronic anemia
hgb 10.9, hct 34.4
appears stable
- monitor h/h
Code status: full code
DVT prophylaxis: Eliquis
On 07/10/25, I spoke with patient's daughter inside patient's room, and I answered all of her questions and concerns to satisfaction.
On 07/11/25, I spoke with patient's daughter inside patient's room, and I answered all of her questions and concerns to satisfaction.
Anticipated Discharge: 24 - 48 hours
Subjective/Interval History
-
Date of Service: July 11, 2025
Patient was seen and examined. She denied any new symptoms or issues, except constipation from her IBS.
Objective Data
-
Labs:
Laboratory Results
07/11/25
07:16
Sodium 139
Potassium 4.1
Chloride 99
Carbon Dioxide 36 H
BUN 34 H
Creatinine 1.5 H
Glucose 108 H
Calcium 9.2
Vital Signs:
Vital Signs
Temp Pulse Resp BP Pulse Ox
98.2 F 77 16 118/79 94
07/11/25 07:00 07/11/25 07:00 07/11/25 07:00 07/11/25 07:00 07/11/25 07:00
I&O
07/10/25 07/11/25 07/12/25
06:59 06:59 06:59
Intake Total 540 / 540 660 / 660
Output Total 1250 / 1250 600 / 600
Balance -710 / -710 60 / 60
--- NOTE | 2025-07-11 08:28 | W.PN.CARDCBS ---
Today's Communication / Plan
-
Okay for discharge from cardiac standpoint
See below for recommendations
We will sign off, please call if questions
Impression / Plan
-
PCP: Dr. Laurie Guardado
Cardiology: Dr. Stein
Impression:
Admitted with CARMEN and increased LE edema 07/08/2025
Acute on chronic HFpEF, proBNP 5230
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
Elevated troponin
Paroxysmal atrial fibrillation
Chronic Eliquis OAC
s/p Medtronic DC PPM
HTN
Hyperlipidemia
Severe MR by echo 07/09/2025
Echo 04/12/2024: EF 55 to 60%, mild to moderate MS, at least moderate MR that may be underestimated due to MAC, mild to moderate peak/mean 21/12 mmHg
Echo 07/09/2025: EF 55 to 60%, severe MR, mild MS, mild to moderate with peak/mean 18/10 mmHg, mild to moderate aortic regurgitation, normal right heart, mild to moderate TR with PAP 30 mmHg
Plan:
Overall she looks well.
Okay for discharge from cardiac standpoint. Case management involved, proceeding with discharge planning
Recommended cardiac meds at discharge:
Apixaban 2.5 mg twice daily
Atorvastatin 20 mg a day
Carvedilol 3.125 mg twice daily
Furosemide 40 mg daily (Increased dose)
Please check BMP in 5 to 7 days
Cardiac follow-up arranged
HPI 07/09/2025:
Patient came to the ER yesterday with increased LE edema and CARMEN and cardiology is now consulted for acute HF. Patient and her live in an assisted living apartment at [facility]. Patient has a history of chronic HFpEF and
usually takes Lasix 40 mg PO daily and reports compliance with this. Patient thinks that the SOB started in the last few days and LE edema was a few days before that. Patient reports good urine output with her usual dose of Lasix. Patient denies
any increased salt intake. Patient has a history of preserved EF and at least moderate MR by an echo in 2023 that now appears to be more severe in the setting of acute HF. Patient denies any chest pain.
Progress Note - Payroll Examiner
Subjective
Date of Service: July 11, 2025;
89-year-old woman admitted with HFpEF.
PMH: HFpEF, severe mitral regurgitation, previously moderate, paroxysmal atrial fibrillation, CKD 3A, Medtronic dual-chamber pacemaker, hypertension, hyperlipidemia
Medications: Reviewed
132/61, pulse 70, respiratory rate 16, afebrile, frail, petite, pleasant no distress, family at bedside clear lungs, loud MR murmur, regular rate and rhythm, JVD okay not much edema
BUN and creatinine are 34 and 1.5, potassium is 4.1
Objective
Labs:
07/09/25 07:21
07/11/25 07:16
Labs
Hgb 11.3 g/dL (12.0-16.0) L 07/09/25 07:21
Hct 34.7 % (37.0-47.0) L 07/09/25 07:21
Plt Count 332 10^3/uL (130-400) 07/09/25 07:21
Sodium 139 mmol/L (135-145) 07/11/25 07:16
Potassium 4.1 mmol/L (3.5-5.1) 07/11/25 07:16
BUN 34 mg/dl (7-17) H 07/11/25 07:16
Creatinine 1.5 mg/dL (0.6-1.0) H 07/11/25 07:16
Glucose 108 mg/dl (70-99) H 07/11/25 07:16
Troponins
07/08/25
14:49
Troponin I 0.038 H*
Vital Signs and I&O:
Vital Signs
Temp Pulse Resp BP Pulse Ox
36.8 C 77 16 118/79 94
07/11/25 07:00 07/11/25 07:00 07/11/25 07:00 07/11/25 07:00 07/11/25 07:00
Vital Signs
Temp Pulse Resp BP Pulse Ox
36.8 C 77 16 118/79 94
07/11/25 07:00 07/11/25 07:00 07/11/25 07:00 07/11/25 07:00 07/11/25 07:00
Intake & Output
07/09/25 07/10/25 07/11/25 07/12/25
07:59 07:59 07:59 07:59
Intake Total 540 / 540 660 / 660
Output Total 650 / 650 1250 / 1250 600 / 600
Balance -650 / -650 -710 / -710 60 / 60
Physical Exam
Physical Exam
See above
[2025-07-11] MEDS: NITRO-DUR 0.4 MG TRANSDERM (08:46)
[2025-07-11] MEDS: ELIQUIS 2.5 MG PO ×2 (08:47→21:08)
[2025-07-11] MEDS: PEPCID 20 MG PO (08:47)
[2025-07-11] MEDS: WELLBUTRIN XL (24 hour extended release) 300 MG PO (08:47)
[2025-07-11] MEDS: COREG 3.125 MG PO ×2 (08:47→21:07)
[2025-07-11] MEDS: VITAMIN D3 (cholecalciferol) 25 MCG PO (08:47)
[2025-07-11] MEDS: EFFEXOR XR 225 MG PO (08:47)
[2025-07-11] MEDS: LASIX 40 MG PO (08:48)
[2025-07-11] MEDS: MIRALAX 17 GRAMS PO (14:55)
--- NOTE | 2025-07-11 16:00 | CM ---
F/U: Family asked for Case Management re: SNF. Met with , patient, and daughter. Patient lives at [facility] so wants the SNF. Made referral to [facility] in Admissions is seeing when there is a bed. Patient not quite
ready and family is thinking about a second option just in case. PLAN: SNF to [place].
[2025-07-11] MEDS: LIPITOR 20 MG PO (21:07)
[2025-07-11] MEDS: REMERON 7.5 MG PO (21:07)
[2025-07-11] MEDS: REMOVE NITROGLYCERIN PATCH 1 PATCH REMOVE (21:08)
[2025-07-12 03:59] VITALS: BP 143/76
[2025-07-12 06:00] VITALS: BMI 16.1
[2025-07-12 07:00] VITALS: BP 113/66
[2025-07-12] MEDS: MIRALAX 17 GRAMS PO (08:18)
[2025-07-12] MEDS: NITRO-DUR 0.4 MG TRANSDERM (08:18)
[2025-07-12] MEDS: WELLBUTRIN XL (24 hour extended release) 300 MG PO (08:19)
[2025-07-12] MEDS: VITAMIN D3 (cholecalciferol) 25 MCG PO (08:19)
[2025-07-12] MEDS: LASIX 40 MG PO (08:19)
[2025-07-12] MEDS: EFFEXOR XR 225 MG PO (08:19)
[2025-07-12] MEDS: ELIQUIS 2.5 MG PO ×2 (08:19→20:39)
[2025-07-12] MEDS: COREG 3.125 MG PO ×2 (08:19→20:40)
--- NOTE | 2025-07-12 08:47 | W.PN.HOSP.TC ---
Addendum entered and electronically signed by Rommel Geronimo MD 07/14/25 13:20:
Moderate Protein Malnutrition
Original Note:
Today's Communication/Plan
-
SNF placement pending
Assessment / Plan
Assessment / Plan
Physical Exam
General: Well Developed, Well Nourished, No Apparent Distress, Comfortable, Conversant and Cachectic
HEENT: NormoCephalic, Moist mucous membranes, PERRLA, Nose Appears Normal, Ears Appear Normal and Hearing Impaired
Respiratory: Rhonchi, Non Labored Respirations and Decreased Breath Sounds; No Wheezes or Rales
Cardiac: Regular Rhythm, Murmur and Peripheral Edema (bilateral lower extremity ); No Tachycardia, Rub or Gallop
GI: Soft, Non Tender, Non Distended and Normal Bowel Sounds
Musculoskeletal: No Clubbing and No Cyanosis
Skin: Warm and IV/Catheter Site
Neuro: Awake and AO x 3
Psych: Calm
Assessment/Plan
89-year-old female past medical history of paroxysmal atrial fibrillation with pacemaker, CAD, HFpEF, CKD, chronic anemia, hypertension, hypercholesteremia, anxiety depression, hypothyroidism, presenting with bilateral lower extremity swelling, and
shortness of breath for 1 week. Vital signs show blood pressure 190/95. Cardiac BNP 5000. Troponin of 0.038. EKG shows ventricular paced rhythm. Chest x-ray shows mild cardiomegaly with likely mild interstitial edema and small bilateral pleural
effusion with adjacent atelectasis.
#Acute Hypoxic Respiratory Failure -- on 07/08/25, she went to primary care office to be seen and her SpO2 dropped with ambulation to 64%
#increased bilateral lower extremity edema and dyspnea likely 2/2 acute on chronic HFpEF
#HFpEF
#Pulmonary Edema, Atelectasis and Pleural Effusions on Chest X-Ray
- Continue to monitor on telemetry
- Cardiology consulted
- IV Lasix 20mg BID --> recently transitioned to oral Lasix 40 mg
- daily weights
- I & Os
- ECHO noted
- Please check BMP in 4 to 5 days
#paroxysmal atrial fibrillation
s/p pacemaker
- continue Eliquis 2.5 mg twice daily
#hypertension
- continue carvedilol 3.125 mg twice daily
#hyperlipidemia
- continue atorvastatin 20 mg a day
#anxiety/depression
- continue bupropion, mirtazapine and venlafaxine
#GERD
- continue famotidine
#CAD
- continue nitroglycerin patch
#chronic kidney disease III
BUN 43, creat 1.5, eGFR 33.31
appears stable
- monitor BMP
#chronic anemia
hgb 10.9, hct 34.4
appears stable
- monitor h/h
Code status: full code
DVT prophylaxis: Eliquis
On 07/10/25, I spoke with patient's daughter inside patient's room, and I answered all of her questions and concerns to satisfaction.
On 07/11/25, I spoke with patient's daughter inside patient's room, and I answered all of her questions and concerns to satisfaction.
On 07/12/25, I spoke with patient's daughter (and additional family members including patient's and son) inside patient's room, and I answered all of their questions and concerns to satisfaction.
Anticipated Discharge: Within 24 hours
Subjective/Interval History
-
Date of Service: July 12, 2025
Patient was seen and examined. She denied any new symptoms.
Objective Data
-
Vital Signs:
Vital Signs
Temp Pulse Resp BP Pulse Ox
98.9 F 82 16 113/66 93
07/12/25 07:00 07/12/25 07:00 07/12/25 07:00 07/12/25 07:00 07/12/25 07:00
I&O
07/11/25 07/12/25 07/13/25
06:59 06:59 06:59
Intake Total 660 / 660 720 / 720
Output Total 600 / 600 700 / 700
Balance 60 / 60 20 / 20
[2025-07-12 11:00] VITALS: BP 119/52
--- NOTE | 2025-07-12 12:16 | CM ---
F/U: Met with daughter who gave 2 more choice as backup and made referrals to [facility] and [facility]. First choice is [facility], the [facility] is aware of this that patient lives in [facility] and wants SNF at [facility]. PLAN: SNF when
ready.
[2025-07-12 15:00] VITALS: BP 101/59
[2025-07-12] MEDS: REMERON 7.5 MG PO (20:39)
[2025-07-12] MEDS: LIPITOR 20 MG PO (20:39)
[2025-07-12] MEDS: REMOVE NITROGLYCERIN PATCH 1 PATCH REMOVE (20:40)
[2025-07-12 23:47] VITALS: BP 143/81
[2025-07-13 06:00] VITALS: BMI 16.3
[2025-07-13 08:14] VITALS: BP 139/72
[2025-07-13] MEDS: COREG 3.125 MG PO (08:55)
[2025-07-13] MEDS: EFFEXOR XR 225 MG PO (08:55)
[2025-07-13] MEDS: NITRO-DUR 0.4 MG TRANSDERM (08:56)
[2025-07-13] MEDS: ELIQUIS 2.5 MG PO (08:56)
[2025-07-13] MEDS: VITAMIN D3 (cholecalciferol) 25 MCG PO (08:56)
[2025-07-13] MEDS: WELLBUTRIN XL (24 hour extended release) 300 MG PO (08:57)
[2025-07-13] MEDS: PEPCID 20 MG PO (08:57)
[2025-07-13] MEDS: MIRALAX PO (08:57)
[2025-07-13] MEDS: LASIX 40 MG PO (08:57)
--- NOTE | 2025-07-13 10:33 | VNURNOTE ---
Chart reviewed. Noted that plan is now for SNF. [facility] updated ; they have declined d/t plan in DC plans.
--- NOTE | 2025-07-13 11:12 | CM ---
Pt and family have accepted [facility]. Family first choice is [facility] but there are no beds available for today.
wheelchair transport time is 12:30
[facility]
Report: [phone]
--- NOTE | 2025-07-13 11:19 | CM ---
Pt is discharged today to [facility]. Transport by Wheelchair van.
[2025-07-13 11:34] VITALS: BP 130/63
--- NOTE | 2025-07-13 13:43 | W.DCSUMMARY ---
Discharge Summary
Discharge Data
Date of Admission: 07/08/25
Date of Discharge: 07/13/25
-
Pending Results: No
Hospital Course
Discharging Physician : Dr Israel Hawkins
Disposition : [facility] for snf rehab
Primary care physician : Dr Laurie Anne
Principal Discharge diagnosis :
Acute on chronic diastolic congestive heart failure
Severe mitral regurgitation
Moderate aortic stenosis
Acute kidney injury on chronic kidney disease stage IIIa
Elevated troponin
Chronic Discharge diagnosis :
Paroxysmal atrial fibrillation
Medtronic pacemaker placement
Essential hypertension
Hyperlipidemia
Physical examination:
GEN: aox3, cachectic
HEENT: moist mucus membrane
Chest: Clear to auscultation
Heart: N s1/s2, regular rate/rhythm. Regurgitation murmur on mitral valve
Abd: N BS, soft, nontender, nondistended, no organomegaly
Neuro: No motor or sensory deficits
Ext: No edema
Hospital Course :
Patient is a 89-year-old female with above-mentioned past medical history was brought in for having new onset lower extremity edema and shortness of breath for 1 week. In ER on evaluation patient was noted to having elevated proBNP/troponin with
chest x-ray showing signs of cardiomegaly and interstitial edema. Patient was diagnosed to having heart failure exacerbation and was started on IV diuretic therapy. Cardiology was consulted for further evaluation. Repeat echocardiogram was done
which showed patient mitral regurgitation has worsened in severity. Patient also have moderate aortic stenosis. Cardiology recommended continue all medical management of heart failure after which patient did improvement in symptoms of dyspnea.
Patient continues to have NYHA level III symptoms despite volume optimization. Brief goal of care discussion was held regarding patient overall cardiac condition and guarded prognosis. Patient being discharged to SNF rehab with plan for follow-up
in primary supervisor shuttle preparation office.
Important imaging findings :
None
Procedure findings :
None
Discharge Plan
-
Patient Disposition: [facility]/SNF
Discharge Diagnosis/Procedures: Diastolic heart failure, Severe mitral regurgitation, acute kidney injury on chronic kidney disease stage IIIa
Condition: Fair
Diet: 2 Gram Sodium and Restrict fluids to 48 oz
Activity: As tolerated
Driving Restrictions: No driving
Bathing Restrictions: OK to Shower
Blood Work: BMP in 1 week (Order provided)
Instructions: *[facility] Heart Failure Instructions
Referrals:
Alexsander Stein MD [Active, Cardiology] - 07/28/25 11:20 am
Referral Note: You have hospital follow-up with Dr. Ch on July 28 at 11:20 AM in [place] [facility] If you are unable to make this appointment please call [phone] to reschedule
Laurie Anne MD [Family Provider, Internal Medicine] - in one week
Prescriptions:
New
furosemide 40 mg Tablet
40 mg PO DAILY Qty: 30 2RF
(DME) Blood work
See Rx Instructions .Route .MEDSUPPLY Qty: 1 0RF
Rx Instructions:
BMP in 1 week
Dx : CKDIIIA, Diastolic HF
Forward result to primary supervisor shuttle preparation Dr Guevara's office
Continued
Eliquis 2.5 mg Tablet
2.5 mg PO BID
venlafaxine [Effexor XR] 75 mg Capsule,Extended Release 24hr
225 mg PO DAILY
atorvastatin [Lipitor] 20 mg Tablet
20 mg PO HS
loperamide 2 mg Tablet
2 mg PO BID
carvedilol [Coreg] 3.125 mg Tablet
3.125 mg PO BID
famotidine [Pepcid] 20 mg Tablet
20 mg PO HS
nitroglycerin 0.4 mg/hr Patch 24 Hour
1 patch TRANSDERMAL DAILY
bupropion HCl [Wellbutrin XL] 300 mg Tablet Extended Release 24 Hr
300 mg PO DAILY
mirtazapine 7.5 mg Tablet
7.5 mg PO HS
cholecalciferol (vitamin D3) [Vitamin D3] 25 mcg (1,000 unit) Tablet
25 mcg PO DAILY
Discontinued
furosemide [Lasix] 20 mg Tablet
20 mg PO DAILY
Discharge Orders:
Discharge Patient (As Directed); Ordered 07/13/25
Ordered By: Israel Hawkins
Discharge Date and Time
Discharge Date/Time: 07/13/25 12:41
Print Language: [place]
== END 2025-07-13 12:41 | DRG 291 ==
LOC: 4 EAST ACU 19:45
PROVIDERS: Nurse Practitioner Family; Student in an Organized Health Care Education/Training Program; ADMITTING PHYSICIAN Hospitalist; ATTENDING PHYSICIAN Hospitalist; EMERGENCY PHYSICIAN Emergency Medicine; FAMILY PHYSICIAN Internal Medicine; OTHER PHYSICIAN Internal Medicine Cardiovascular Disease
DX: I13.0 Hypertensive heart and chronic kidney disease with heart failure and stage 1 through stage 4 chronic kidney disease, or unspecified chronic kidney disease (principal); I50.33 Acute on chronic diastolic (congestive) heart failure; E44.0 Moderate protein-calorie malnutrition; Z68.1 Body mass index [BMI] 19.9 or less, adult; N17.9 Acute kidney failure, unspecified; R64 Cachexia; J98.11 Atelectasis; Z59.869 Financial insecurity, unspecified; I48.0 Paroxysmal atrial fibrillation; N18.31 Chronic kidney disease, stage 3a; I5A Non-ischemic myocardial injury (non-traumatic); Z79.01 Long term (current) use of anticoagulants; Z79.899 Other long term (current) drug therapy; Z87.891 Personal history of nicotine dependence; Z95.0 Presence of cardiac pacemaker
CPT/HCPCS: 71046; 80048; 80053; 80061; 83735; 83880; 84484; 85025; 85027; 93005; 93306; 96374; 97162; 97166; 99285

== ENCOUNTER → 2025-07-20 13:02 | Outpatient (REF) | payer OTHER, MEDICARE, SELFPAY ==
[2025-07-20 13:36] LABS: Hematocrit 34.2 % (37.0-47.0); Hemoglobin 10.4 g/dL (12.0-16.0); Mean Corp Hgb Conc. 30.4 g/dL (33.0-37.0); Mean Corpuscular Volume 91.7 fL (81.0-99.0); Nucleated Red Blood Cells % 0 %; Platelet Count 265 10^3/uL (130-400); Red Cell Dist. Width 13.8 % (11.5-14.5)
[2025-07-20 14:33] LABS: Blood Urea Nitrogen 38 mg/dl (7-17); Calcium 8.6 mg/dl (8.4-10.2); Carbon Dioxide 33 mmol/L (22-30); Chloride 95 mmol/L (98-107); Glucose 86 mg/dl (70-99); Magnesium 2.3 mg/dl (1.6-2.3); Potassium 4.0 mmol/L (3.5-5.1); Sodium 136 mmol/L (135-145); eGFR 43.54
== END ==
LOC: OLABN 13:02
PROVIDERS: ATTENDING PHYSICIAN Student in an Organized Health Care Education/Training Program
DX: N18.30 Chronic kidney disease, stage 3 unspecified (principal)
CPT/HCPCS: 36415; 80048; 83735; 85025